=== PATIENT | male | born 1950 | race Caucasian/White ===

== ENCOUNTER 2018-01-18 00:12 | Inpatient (IN) | payer MEDICARE, OTHER ==
[~2018-01-18] VITALS: Ht 180.3 cm; Wt 65.8 kg
[2018-01-18] VITALS (8 sets, daily range): BP systolic 108–124; BP diastolic 33–67
[2018-01-18] MEDS ORDERED: IPRATROPIUM BROMIDE (0.02%) 0.5MG/2.5ML NEB HHN STA (00:19)
[2018-01-18] MEDS ORDERED: ONDANSETRON HCL 4MG/2ML VIAL IV STA (00:19)
[2018-01-18] MEDS ORDERED: METHYLPREDNISOLONE SOD SUCC 125 MG/2 ML VIAL IV STA (00:19)
[2018-01-18] MEDS ORDERED: SODIUM CHLORIDE 0.9% 1,000 ML IV ONE (00:19)
[2018-01-18] MEDS ORDERED: MAGNESIUM 2 G PREMIX 50 ML IV ONE (00:30)
[2018-01-18 01:04] LABS: BG BASE EXCESS -1.7 mmol/L (-2.0-2.0); BG BILEVEL POS AIRWAY PRESSURE 15/5; BG CARBOXYHEMOGLOBIN 3.2 % (0.5-1.5); BG DEOXYHEMOGLOBIN 7.6 % (0.0-5.0); BG FRACTION INSPIRED OXYGEN 40; BG HCO3 ACT 24.1 mmol/L (22.0-26.0); BG METHEMOGLOBIN 0.3 % (0.0-1.5); BG OXYGEN SATURATION 92.1 % (92.0-98.5); BG OXYHEMOGLOBIN 88.9 % (94.0-97.0); BG PCO2 44.5 mmHg (35.0-45.0); BG PH 7.351 (7.350-7.450); BG PO2 99.8 mmHg (75.0-100.0); BG SAMPLE SITE RIGHT BRACHIAL; BG TOTAL HEMOGLOBIN 14.4 g/dL (12.0-18.0); BG VENT MODE MASK - BIPAP; BG VENT RATE 16 set
[2018-01-18] MEDS: ALBUTEROL (0.083%) 2.5MG/3ML NEB HHN SCH ×3 (01:10→03:10)
[2018-01-18 01:19] LABS: CHLORIDE 99 mEq/L (98-107)
[2018-01-18 01:24] LABS: BASOPHILS % 0.8 % (0.0-2.0); EOSINOPHILS % 2.5 % (0.0-5.0); HEMATOCRIT. 42.2 % (42.0-52.0); HEMOGLOBIN. 14.1 g/dL (14.0-18.0); LYMPHOCYTES % 38.8 % (20.0-50.0); MEAN CORPUSCULAR HEMOGLOBIN 29.2 pg (28.0-32.0); MEAN CORPUSCULAR VOLUME 87.6 fL (80.0-94.0); MEAN PLATELET VOLUME 6.7 fl (7.4-10.4); MONOCYTES % 7.7 % (2.0-8.0); NEUTROPHILS % 50.2 % (40.0-76.0); PLATELET 334 x1000/uL (130-400); RED BLOOD CELL COUNT 4.82 mill/uL (4.7-6.1); RED CELL DISTRIBUTION WIDTH 15.5 % (11.6-14.6)
[2018-01-18] MEDS ORDERED: SODIUM CHLORIDE 0.9% 1,000 ML IV SCH ×2 (03:19→03:27)
[2018-01-18] MEDS ORDERED: IPRATROPIUM/ALBUTEROL 0.5-3(2.5)MG/3ML NEB INH PRN (03:30)
[2018-01-18] MEDS ORDERED: MAGNESIUM/ALUMINUM HYDROXIDE/SIMETHICONE 30ML UDC PO PRN (03:30)
[2018-01-18] MEDS ORDERED: ACETAMINOPHEN 325MG TABLET PO PRN (03:30)
[2018-01-18] MEDS ORDERED: DIPHENHYDRAMINE 50MG/ML VIAL IV PRN (03:30)
[2018-01-18] MEDS ORDERED: ONDANSETRON HCL 4MG/2ML VIAL IV PRN (03:30)
[2018-01-18] MEDS ORDERED: CLONIDINE 0.1MG TABLET PO PRN (03:30)
[2018-01-18] MEDS ORDERED: LORAZEPAM 2MG/ML CPJ IV PRN (03:45)
[2018-01-18] MEDS ORDERED: LEVOFLOXACIN 500MG PREMIX 100 ML IV NR (04:15)
[2018-01-18] MEDS: IPRATROPIUM/ALBUTEROL 0.5-3(2.5)MG/3ML NEB HHN SCH ×4 (08:57→20:24)
[2018-01-18] MEDS ORDERED: PANTOPRAZOLE SODIUM 40 MG/VIAL IV SCH (10:00)
[2018-01-18] MEDS ORDERED: METHYLPREDNISOLONE SOD SUCC 125 MG/2 ML VIAL IV SCH (10:00)
[2018-01-18] MEDS ORDERED: ONDANSETRON 4MG ODT PO PRN (10:30)
[2018-01-18] MEDS ORDERED: IPRATROPIUM/ALBUTEROL 0.5-3(2.5)MG/3ML NEB HHN PRN (12:45)
[2018-01-18] MEDS ORDERED: FAMOTIDINE 20MG/2ML VIAL IV SCH (12:45)
[2018-01-18] MEDS ORDERED: NICOTINE 21MG PATCH TD SCH (13:00)
[2018-01-18] MEDS ORDERED: THEOPHYLLINE ANHYDROUS 80 MG/15 ML 120ML PO SCH (13:45)
[2018-01-18] MEDS ORDERED: AMINOPHYLLINE 1,000 MG in SODIUM CHLORIDE 0.9% 210 ML IV SCH (14:00)
[2018-01-18] MEDS: TERBUTALINE SULFATE 1MG/ML VIAL SUBCUT SCH ×2 (14:57→15:12)
[2018-01-18] MEDS: METHYLPREDNISOLONE SOD SUCC 40 MG/ML VIAL IV SCH ×3 (14:58→23:24)
[2018-01-18] MEDS: THEOPHYLLINE ANHYDROUS 80 MG/15 ML 120ML PO SCH ×2 (17:00→20:59)
[2018-01-18] MEDS: FAMOTIDINE 20MG/2ML VIAL IV SCH (20:58)
[2018-01-18 21:28] LABS: CLARITY URINE CLEAR (CLEAR); COLOR URINE YELLOW (YELLOW); KETONES URINE NEGATIVE (NEGATIVE); LEUKOCYTE ESTERASE URINE NEGATIVE (NEGATIVE); NITRITE URINE NEGATIVE (NEGATIVE); OCCULT BLOOD URINE NEGATIVE (NEGATIVE); PH URINE 5.5 (4.5-8.0); PROTEIN URINE NEGATIVE (NEGATIVE); UROBILINOGEN URINE 0.2 E.U./dL (0.2-1.0)
[2018-01-18 21:38] LABS: *BARBITURATES SCREEN URINE NEGATIVE (NEGATIVE); *BENZODIAZEPINES SCREEN URINE NEGATIVE (NEGATIVE)
[2018-01-18 21:40] LABS: *AMPHETAMINES SCREEN URINE NEGATIVE (NEGATIVE); *COCAINE SCREEN URINE NEGATIVE (NEGATIVE); CANNABINOID URINE SCREEN PRESUMTIVE POSITIVE (NEGATIVE); METHADONE URINE SCREEN NEGATIVE (NEGATIVE); OPIATES URINE SCREEN PRESUMTIVE POSITIVE (NEGATIVE); PHENCYCLIDINE URINE SCREEN NEGATIVE (NEGATIVE)
[2018-01-18] MEDS: DEXT 5%/0.9% NACL KCL 20MEQ/L 1,000 ML IV SCH (22:14)
[2018-01-19] VITALS (14 sets, daily range): BP systolic 98–153; BP diastolic 47–88
[2018-01-19] MEDS: IPRATROPIUM/ALBUTEROL 0.5-3(2.5)MG/3ML NEB HHN SCH ×6 (00:31→20:13)
[2018-01-19] MEDS: METHYLPREDNISOLONE SOD SUCC 40 MG/ML VIAL IV SCH ×3 (06:07→17:34)
[2018-01-19 06:34] LABS: BASOPHILS % 0.2 % (0.0-2.0); HEMATOCRIT. 36.7 % (42.0-52.0); HEMOGLOBIN. 12.2 g/dL (14.0-18.0); LYMPHOCYTES % 8.3 % (20.0-50.0); MEAN CORPUSCULAR HEMOGLOBIN 29.2 pg (28.0-32.0); MEAN CORPUSCULAR VOLUME 88.1 fL (80.0-94.0); MEAN PLATELET VOLUME 7.2 fl (7.4-10.4); MONOCYTES % 2.5 % (2.0-8.0); PLATELET 296 x1000/uL (130-400); RED BLOOD CELL COUNT 4.17 mill/uL (4.7-6.1); RED CELL DISTRIBUTION WIDTH 15.7 % (11.6-14.6)
[2018-01-19 06:51] LABS: CHLORIDE 109 mEq/L (98-107)
[2018-01-19 07:11] LABS: PHOSPHORUS 2.3 mg/dL (2.5-4.9)
[2018-01-19] MEDS: DEXT 5%/0.9% NACL KCL 20MEQ/L 1,000 ML IV SCH ×2 (08:12→17:35)
[2018-01-19] MEDS ORDERED: THEOPHYLLINE ANHYDROUS 80 MG/15 ML 120ML PO SCH (09:00)
[2018-01-19] MEDS ORDERED: LEVOFLOXACIN 500MG PREMIX 100 ML IV SCH (09:00)
[2018-01-19] MEDS: FAMOTIDINE 20MG/2ML VIAL IV SCH ×2 (09:27→21:28)
[2018-01-19] MEDS: THEOPHYLLINE ANHYDROUS 80 MG/15 ML 120ML PO SCH ×4 (09:27→21:28)
[2018-01-19] MEDS: NICOTINE 21MG PATCH TD SCH (09:28)
[2018-01-19] MEDS: GUAIFENESIN 200MG/10ML SUGAR FREE UDC PO PRN (21:31)
[2018-01-20] VITALS (12 sets, daily range): BP systolic 111–150; BP diastolic 46–86
[2018-01-20] MEDS: IPRATROPIUM/ALBUTEROL 0.5-3(2.5)MG/3ML NEB HHN SCH ×6 (00:34→20:24)
[2018-01-20] MEDS: DEXT 5%/0.9% NACL KCL 20MEQ/L 1,000 ML IV SCH ×2 (04:02→13:32)
[2018-01-20] MEDS: METHYLPREDNISOLONE SOD SUCC 40 MG/ML VIAL IV SCH ×4 (07:08→22:05)
[2018-01-20] MEDS: FAMOTIDINE 20MG/2ML VIAL IV SCH ×2 (08:34→22:05)
[2018-01-20] MEDS: NICOTINE 21MG PATCH TD SCH (08:34)
[2018-01-20] MEDS: THEOPHYLLINE ANHYDROUS 80 MG/15 ML 120ML PO SCH ×4 (10:14→22:05)
[2018-01-20] MEDS: GUAIFENESIN 200MG/10ML SUGAR FREE UDC PO PRN (10:24)
[2018-01-20] MEDS ORDERED: DEXTROSE 50% WATER 50ML SYRINGE IV PRN (15:00)
[2018-01-20] MEDS: BLOOD SUGAR DIAGNOSTIC STRIP TEST SCH ×2 (17:44→21:00)
[2018-01-20] MEDS: INSULIN LISPRO 100 UNITS/ML SUBCUT SCH ×2 (17:58→22:14)
[2018-01-21] VITALS (14 sets, daily range): BP systolic 109–147; BP diastolic 60–83
[2018-01-21] MEDS: IPRATROPIUM/ALBUTEROL 0.5-3(2.5)MG/3ML NEB HHN SCH ×6 (00:44→20:41)
[2018-01-21] MEDS: METHYLPREDNISOLONE SOD SUCC 40 MG/ML VIAL IV SCH (05:32)
[2018-01-21] MEDS: BLOOD SUGAR DIAGNOSTIC STRIP TEST SCH ×4 (07:30→23:32)
[2018-01-21] MEDS: NICOTINE 21MG PATCH TD SCH (09:14)
[2018-01-21] MEDS: FAMOTIDINE 20MG/2ML VIAL IV SCH ×2 (09:14→23:13)
[2018-01-21] MEDS: INSULIN LISPRO 100 UNITS/ML SUBCUT SCH ×4 (09:15→23:32)
[2018-01-21] MEDS: THEOPHYLLINE ANHYDROUS 80 MG/15 ML 120ML PO SCH ×4 (09:19→23:22)
[2018-01-21] MEDS ORDERED: GUAIFENESIN/CODEINE 100-10MG/5ML UDC PO PRN (09:45)
[2018-01-21] MEDS ORDERED: BENZONATATE 100MG CAPSULE PO PRN (09:45)
[2018-01-21] MEDS: PREDNISONE 20MG TABLET PO SCH (18:06)
[2018-01-21] MEDS ORDERED: TEMAZEPAM 15MG CAPSULE PO SCH (21:00)
[2018-01-21] MEDS: GUAIFENESIN 200MG/10ML SUGAR FREE UDC PO PRN (23:14)
[2018-01-22] VITALS (8 sets, daily range): BP systolic 108–137; BP diastolic 59–77
[2018-01-22] MEDS: IPRATROPIUM/ALBUTEROL 0.5-3(2.5)MG/3ML NEB HHN SCH ×4 (00:23→13:18)
[2018-01-22] MEDS: INSULIN LISPRO 100 UNITS/ML SUBCUT SCH ×2 (08:00→13:15)
[2018-01-22] MEDS: BLOOD SUGAR DIAGNOSTIC STRIP TEST SCH ×2 (08:08→11:32)
[2018-01-22] MEDS: NICOTINE 21MG PATCH TD SCH (09:41)
[2018-01-22] MEDS: PREDNISONE 20MG TABLET PO SCH (09:41)
[2018-01-22] MEDS: THEOPHYLLINE ANHYDROUS 80 MG/15 ML 120ML PO SCH ×2 (09:42→14:00)
[2018-01-22] MEDS: FAMOTIDINE 20MG/2ML VIAL IV SCH (09:45)
[2018-01-22] MEDS ORDERED: THEO100C PO (15:16)
[2018-01-22] MEDS ORDERED: THEO200T17 PO (15:16)
[2018-01-22] MEDS ORDERED: TIOT18CA3 INH (15:18)
[2018-01-22] MEDS ORDERED: BUDE6.9H IH (15:19)
== END 2018-01-22 16:28 | disposition home or self-care (01) | DRG 189 ==
LOC: ER 02:07 → 5EST 03:20 → EDBEDREQ 03:25 → EDBEDREQSVC 03:25 → EDBEDREQTM 03:25 → ENRESERV 08:37
PROVIDERS: ADMIT Internal Medicine; ATTEND Internal Medicine
PROC: 5A09357 Assistance with Respiratory Ventilation, Less than 24 Consecutive Hours, Continuous Positive Airway Pressure (ICD-10-PCS; principal; 2018-01-18)
DX: J96.00 Acute respiratory failure, unspecified whether with hypoxia or hypercapnia (principal); E44.0 Moderate protein-calorie malnutrition; F17.210 Nicotine dependence, cigarettes, uncomplicated; J43.9 Emphysema, unspecified; J98.4 Other disorders of lung; Z82.5 Family history of asthma and other chronic lower respiratory diseases; Z85.828 Personal history of other malignant neoplasm of skin; Z99.81 Dependence on supplemental oxygen; Z88.0 Allergy status to penicillin; Z68.20 Body mass index [BMI] 20.0-20.9, adult; Z71.6 Tobacco abuse counseling
CPT/HCPCS: 36415; 36600; 71045; 80048; 80053; 80305; 81003; 82375; 82805; 82962; 83605; 83735; 83880; 84100; 84484; 85025; 85379; 87040; 93005; 93970; 94640; 94660; 96361; 96365; 96366; 96367; 96375; 99291; C9113; J0280; J1200; J1815; J1956; J2405; J2920; J2930; J3105; J3475; J3490; J7030; J7050; J7512; J7611; J7620